=== PATIENT | female | born 1955 | race Caucasian/White ===

== ENCOUNTER → 2020-02-05 09:00 | Outpatient (BNVA) | payer OTHER, SELFPAY | PROVIDERS: Family Provider Nurse Practitioner Family; PCP Nurse Practitioner Family; Visit Provider Nurse Practitioner Family | DX: E78.5 Hyperlipidemia, unspecified (principal); E56.9 Vitamin deficiency, unspecified | CPT/HCPCS: 80053; 80061; 82306; 84439; 84443 ==

== ENCOUNTER → 2021-06-07 09:17 | Outpatient (BNVA) | payer OTHER, SELFPAY | PROVIDERS: Family Provider Nurse Practitioner Family; PCP Nurse Practitioner Family; Visit Provider Dermatology | DX: Z01.89 Encounter for other specified special examinations (principal) ==

== ENCOUNTER → 2022-06-06 10:45 | Outpatient (BNVA) | payer OTHER, SELFPAY | PROVIDERS: Family Provider Nurse Practitioner Family; PCP Nurse Practitioner Family | DX: Z01.89 Encounter for other specified special examinations (principal) ==